=== PATIENT | male | born 1995 | race Caucasian/White ===

== ENCOUNTER 2017-07-27 12:41 | Emergency (ER) | payer OTHER ==
[~2017-07-27] VITALS: Ht 182.9 cm; Wt 81.6 kg
[2017-07-27 13:08] VITALS: BP 144/78
--- NOTE | 2017-07-27 13:19 | ED General ---
General Chief Complaint: Dental Problems/Pain Stated Complaint: BACK PAIN Source of Information: Patient Exam Limitations: No Limitations History of Present Illness Time Seen by Provider: 13:16 Initial Comments The patient is a 21-year-old white male who presents with low back pain. He reports that it has been present for 3 days and increasing in intensity. The original back pain goes back to about age 17 after a wrestling injury. He states that there were 2 fractures. They were said to have healed but he has never been free of pain since then. He recently had to quit his job because of back pain. He has been using heat and 200 mg of ibuprofen with this recurrence. There is no pain Timing/Duration: 3-4 Days Allergies and Home Medications Allergies Coded Allergies: No Known Drug Allergies (Unverified , 01/12/12) Home Medications No Active Prescriptions or Reported Meds Constitutional: see HPI EENTM: no symptoms reported Respiratory: no symptoms reported Cardiovascular: no symptoms reported Gastrointestinal: no symptoms reported Genitourinary: no symptoms reported Musculoskeletal: see HPI, back pain Skin: no symptoms reported Psychiatric/Neurological: No Symptoms Reported Hematologic/Lymphatic: No Symptoms Reported Immunological/Allergic: no symptoms reported Past Rtjwefz-Kmovkl-Mjeghx Hx Patient Social History Recent Foreign Travel: No Contact w/Someone Who Travel: No Physical Exam Vital Signs Vital Sign - Last 12Hours 07/27/17 13:08 Temp 98.0 Pulse 75 Resp 18 B/P (MAP) 144/78 (100) Pulse Ox 100 O2 Delivery Room Air Capillary Refill : General Appearance: No Apparent Distress, WD/WN HEENT: Normal ENT Inspection Neck: Normal Inspection Respiratory: Chest Non Tender, Lungs Clear, Normal Breath Sounds, No Accessory Muscle Use, No Respiratory Distress Cardiovascular: Regular Rate, Rhythm, No Edema, No Gallop, No JVD, No Murmur, Normal Peripheral Pulses Gastrointestinal: Normal Bowel Sounds Back: CVA Tenderness (L), CVA Tenderness (R), Vertebral Tenderness Extremity: Normal Capillary Refill, Normal Inspection, Normal Range of Motion, Non Tender, No Calf Tenderness, No Pedal Edema Neurologic/Psychiatric: Alert, Oriented x3, No Motor/Sensory Deficits, Normal Mood/Affect Progress/Results/Core Measures Suspected Sepsis SIRS Temperature: Pulse: Respiratory Rate: Laboratory Tests 07/27/17 13:28: White Blood Count 5.1 Blood Pressure / Mean: Laboratory Tests 07/27/17 13:28: Platelet Count 200 Results/Orders Lab Results Laboratory Tests Test 07/27/17 13:28 Range/Units White Blood Count 5.1 4.3-11.0 10^3/uL Red Blood Count 5.07 4.35-5.85 10^6/uL Hemoglobin 15.9 13.3-17.7 G/DL Hematocrit 44 40-54 % Mean Corpuscular Volume 86 80-99 FL Mean Corpuscular Hemoglobin 31 25-34 PG Mean Corpuscular Hemoglobin Concent 36 32-36 G/DL Red Cell Distribution Width 12.0 10.0-14.5 % Platelet Count 200 130-400 10^3/uL Mean Platelet Volume 9.5 7.4-10.4 FL Neutrophils (%) (Auto) 56 42-75 % Lymphocytes (%) (Auto) 29 12-44 % Monocytes (%) (Auto) 8 0-12 % Eosinophils (%) (Auto) 6 0-10 % Basophils (%) (Auto) 0 0-10 % Neutrophils # (Auto) 2.9 1.8-7.8 X 10^3 Lymphocytes # (Auto) 1.5 1.0-4.0 X 10^3 Monocytes # (Auto) 0.4 0.0-1.0 X 10^3 Eosinophils # (Auto) 0.3 0.0-0.3 10^3/uL Basophils # (Auto) 0.0 0.0-0.1 10^3/uL My Orders Orders - MEL BILLY MD Cbc With Automated Diff (07/27/17 13:15) Lumbar Spine - 2-3 Views (07/27/17 13:15) Vital Signs/I&O Vital Sign - Last 12Hours 07/27/17 13:08 Temp 98.0 Pulse 75 Resp 18 B/P (MAP) 144/78 (100) Pulse Ox 100 O2 Delivery Room Air Capillary Refill : Departure Communication (Admissions) Progress Notes X-rays reveal no evidence of bony abnormality Impression Impression: Primary Impression: back pain Disposition: 01 HOME, SELF-CARE Condition: Stable/Unchanged Departure-Patient Inst. Decision time for Depature: 14:10 Referrals: CYRUS ALVAREZ MD (PCP/Family) Primary Care Physician Patient Instructions: MANAGING YOUR CHRONIC PAIN Add. Discharge Instructions: All discharge instructions reviewed with patient and/or family. Voiced understanding. Use heat to area Tramadol and Flexeril as ordered See your provider for consideration of further workup Scripts [Flexeril] No Conflict Check 10 ttwice a day, #10 Prov: MEL BILLY MD 07/27/17 Tramadol HCl (Tramadol HCl) 50 Mg Tablet 50 MG PO 4 times a day, #20 TAB Prov: MEL BILLY MD 07/27/17 MEL BILLY MD Jul 27, 2017 13:19
[2017-07-27 13:33] LABS: BASOPHILS % (AUTO) 0 % (0-10); EOSINOPHILS # (AUTO) 0.3 10^3/uL (0.0-0.3); EOSINOPHILS % (AUTO) 6 % (0-10); HEMATOCRIT 44 % (40-54); HEMOGLOBIN 15.9 G/DL (13.3-17.7); LYMPHOCYTES # (AUTO) 1.5 X 10^3 (1.0-4.0); LYMPHOCYTES % (AUTO) 29 % (12-44); MEAN CORPUSCULAR HEMOGLOBIN 31 PG (25-34); MEAN CORPUSCULAR HGB CONC 36 G/DL (32-36); MEAN CORPUSCULAR VOLUME 86 FL (80-99); MEAN PLATELET VOLUME 9.5 FL (7.4-10.4); MONOCYTES # (AUTO) 0.4 X 10^3 (0.0-1.0); MONOCYTES % (AUTO) 8 % (0-12); NEUTROPHILS # (AUTO) 2.9 X 10^3 (1.8-7.8); NEUTROPHILS % (AUTO) 56 % (42-75); PLATELET COUNT 200 10^3/uL (130-400); RED BLOOD COUNT 5.07 10^6/uL (4.35-5.85); WHITE BLOOD COUNT 5.1 10^3/uL (4.3-11.0)
--- NOTE | 2017-07-27 13:58 | Diagnostic Imaging Report ---
EXAMINATION: Lumbar spine radiographs, 3 views. COMPARISON: None. INDICATION: 21-year-old male, chronic low back pain. FINDINGS: There are 5 lumbar type vertebral bodies. There is no identified acute fracture. The alignment of lumbar spine is unremarkable. Disc heights are well-preserved. The sacroiliac joints are unremarkable in appearance. IMPRESSION: Unremarkable radiographs of the lumbar spine. Dictated by: Dictated on workstation # [id number]
[2017-07-27] MEDS ORDERED: Flexeril (14:12)
[2017-07-27] MEDS ORDERED: TRAM50TA2 PO (14:12)
== END 2017-07-27 14:34 | disposition home or self-care (01) ==
LOC: EDUNIT# 12:41 → ER 12:42
DX: M54.5 Low back pain (principal)
CPT/HCPCS: 36415; 72100; 85025; 99283

== ENCOUNTER 2017-08-20 05:33 | Outpatient (CLI) | payer OTHER ==
[~2017-08-20] VITALS: Ht 185.4 cm; Wt 81.6 kg
[~2017-08-20 05:33] MED LIST: Flexeril; TRAM50TA2 PO
[2017-08-20] MEDS ORDERED: ONDA4TAB11 PO (13:22)
[2017-08-20] MEDS ORDERED: HYDR-3820 PO (13:22)
== END 2017-08-20 13:28 ==
LOC: PREOP 05:33
PROVIDERS: ATTEND Urology
DX: Z01.818 Encounter for other preprocedural examination (principal); N13.5 Crossing vessel and stricture of ureter without hydronephrosis

== ENCOUNTER 2017-08-21 08:51 | Day surgery (SDC) | payer OTHER ==
[~2017-08-21] VITALS: Ht 185.4 cm; Wt 81.6 kg
[~2017-08-21 08:51] MED LIST changes: +HYDR-3820 PO; +ONDA4TAB11 PO
[2017-08-21] MEDS ORDERED: cefTRIAXone INJECTION 1,000 MG in D5W 50 ML IVPB SOLUTION 50 ML IV ONE (09:15)
[2017-08-21 09:19] VITALS: BP 141/85
[2017-08-21] MEDS ORDERED: fentaNYL INJECTION 100 MCG/2 ML AMP ONE (10:15)
[2017-08-21] MEDS ORDERED: MIDAZOLAM 2 MG/2 ML (VERSED) VIAL ONE (10:15)
[2017-08-21] MEDS ORDERED: ONDANSETRON 4 MG/2 ML (SDV) Z0FRAN ONE (10:17)
[2017-08-21] MEDS ORDERED: proPOfol 200 MG/20 ML (DIPRIVAN) VIAL IV ONE (10:17)
[2017-08-21] MEDS ORDERED: SEVOFLURANE (ULTANE) 15 ML INHAL SOLN ONE ×2 (10:17→11:10)
[2017-08-21] MEDS ORDERED: DEXAMETHASONE 10 MG/ML (DECADRON) 1 ML VIAL ONE (10:17)
[2017-08-21] MEDS ORDERED: LIDOCAINE PF 2% 5 ML (XYLOCAINE) VIAL ONE (10:17)
--- NOTE | 2017-08-21 10:21 | Progress Note-Pre Operative ---
Pre-Operative Progress Note H&P Reviewed The H&P was reviewed, patient examined and no changes noted. Date Seen by Provider: Aug 21, 2017 Time Seen by Provider: 10:21 Date H&P Reviewed: Aug 21, 2017 Time H&P Reviewed: 10: Pre-Operative Diagnosis: RT UPJ OBSTRUCTION NAHUM DOMINGUEZ MD Aug 21, 2017 10:21 am
--- NOTE | 2017-08-21 10:22 | Progress Note-Post Operative ---
Post-Operative Progess Note Surgeon (s)/Stripper Apprentice (s) Surgeon NAHUM DOMINGUEZ MD Stripper Apprentice: N/A Pre-Operative Diagnosis RT UPJ OBSTRUCTION Post-Operative Diagnosis SAME Procedure & Operative Findings Date of Procedure 08/21/17 Procedure Performed/Findings CYSTOSCOPY, RT RETROGRADE UROGRAM AND INSERTION OF JJ STENT Anesthesia Type GENERAL Estimated Blood Loss Estimated blood loss (mL): N/A Specimens/Packing Specimens Removed N/A Packing: N/A NAHUM DOMINGUEZ MD Aug 21, 2017 10:22 am
--- NOTE | 2017-08-21 10:23 | Discharge Inst-Urology ---
Discharge Inst-Urology Discharge Medications New, Converted, or Re-newed RX: RX on Chart Patient Instructions/Follow Up Plan Please make appointment to been seen in office next week week. Increase oral fluids for 48 hours and then as needed. Diet and Activity as tolerated. If questions or concerns contact your physician Or seek help at emergency department. NAHUM DOMINGUEZ MD Aug 21, 2017 10:23 am
[2017-08-21] MEDS ORDERED: WATER (STERILE) FOR INJECTION 20 ML ONE (10:33)
[2017-08-21] MEDS ORDERED: MEPERIDINE (DEMEROL) INJ 50 MG/ML ONE (11:10)
[2017-08-21] MEDS ORDERED: morphine INJ 10 MG/ML 1ML (SYR OR VIAL) ONE (11:22)
[2017-08-21] MEDS: morphine INJ 10 MG/ML 1ML (SYR OR VIAL) IVP PRN ×2 (11:24→11:30)
[2017-08-21] MEDS ORDERED: PROMETHAZINE INJ 25 MG/ML (PHENERGAN) AMP IVP PRN (11:30)
[2017-08-21] MEDS ORDERED: ONDANSETRON 4 MG/2 ML (SDV) Z0FRAN IVP PRN (11:30)
[2017-08-21 11:45] VITALS: BP 127/90
--- NOTE | 2017-08-21 12:29 | Diagnostic Imaging Report ---
INDICATION: Cystoscopy. TECHNIQUE: Fluoroscopy was provided in the OR for cystoscopy and retrograde pyelogram. One minute and 10 seconds of fluoroscopy was utilized. Images demonstrate contrast within a dilated right renal pelvis. There appears to be a right sided stent in place. IMPRESSION: Fluoroscopy for cystoscopy and retrograde pyelography. Dictated by: Dictated on workstation # [id number]
--- NOTE | 2017-08-21 12:44 | OPERATIVE REPORT ---
DATE OF SERVICE: 08/21/2017 PREOPERATIVE DIAGNOSIS: Right ureteropelvic junction obstruction. POSTOPERATIVE DIAGNOSIS: Right ureteropelvic junction obstruction. OPERATION PERFORMED: Cystoscopy, right retrograde urogram and insertion of right double-J stent. SURGEON: Félix Dominguez MD ANESTHESIA: General. COMPLICATIONS: None. DESCRIPTION OF PROCEDURE: Under satisfactory general anesthesia, the patient in lithotomy position, genitalia were prepped and draped in usual sterile fashion. Cystoscope was introduced under vision. The anterior urethra was normal. The prostate was small nonobstructing. Bladder neck open. Bladder was examined and was completely normal except for a slightly sluggish efflux on the right side. Using the foroblique lens, I passed a ureteral catheter, injected contrast all the way up to fill the kidney and confirm the UPJ obstruction with the common appearance of the most of them. There was no high insertion of the ureter. I passed a 6-Maori double-J stent and bypassed the obstruction easily. I removed the guidewire and the stent was seen draining nicely proximally fluoroscopically and distal endoscopically. Bladder was evacuated and the cystoscope was removed. The patient tolerated the procedure and anesthesia well, was sent to recovery room in stable condition. We will see him next week at the office and we referred him to [facility] for either laparoscopic or endoscopic procedure for the UPJ obstruction. Job ID: [id number] DocumentID: [id number] Dictated Date: 08/21/2017 11:02:35 Transfer Car Operator Date: 08/21/2017 12:43:16 Dictated By: FÉLIX DOMINGUEZ MD
[2017-08-21 12:49] VITALS: BP 127/90
== END 2017-08-21 12:49 | disposition home or self-care (01) ==
LOC: SDC 08:51
PROVIDERS: ATTEND Urology
DX: N13.5 Crossing vessel and stricture of ureter without hydronephrosis (principal); F17.210 Nicotine dependence, cigarettes, uncomplicated
CPT/HCPCS: 87081

== ENCOUNTER → 2017-09-18 | Outpatient (CLI) | payer OTHER ==
[~2017-09-18] MED LIST changes: +CATHETER FLUSH 10 ML SYR IV PRN; +FUROSEMIDE 40 MG/4 ML INJ (LASIX) IVP ONE
--- NOTE | 2017-09-18 16:36 | Diagnostic Imaging Report ---
INDICATION: UPJ obstruction. TECHNIQUE: Patient was administered 5.3 mCi technetium 99m MAG3 and imaging over the abdomen was performed. In addition, 40 mg of Lasix was administered intravenously at approximately 15 minutes into the study. FINDINGS: The dynamic flow images demonstrate symmetric uptake of activity by both kidneys. There appears to be fairly symmetric uptake of tubular activity as well as excretion of activity into bilateral renal collecting systems. There is accumulation of activity into the dilated right renal pelvis, correlating with patient's known right UPJ obstruction. There is a normal downgoing renogram curve for the left kidney. There is a slightly flatter right renogram curve owing to activity accumulation in the renal pelvis, however there does appear to be normal excretion of activity into the right ureter and urinary bladder. Overall, differential renal function is 54% for the left kidney and 46% for the right. IMPRESSION: Renal scan does show symmetric perfusion bilaterally. There is slightly delayed excretion of activity from the right kidney with moderate accumulation into the right renal pelvis, consistent with known UPJ obstruction. However, there is excretion of activity from both kidneys into bilateral ureters and urinary bladder. No obstruction is identified. Dictated by: Dictated on workstation # [id number]
== END ==
LOC: CARD 07:31
PROVIDERS: ATTEND Urology
DX: N13.5 Crossing vessel and stricture of ureter without hydronephrosis (principal)
CPT/HCPCS: 78708

== ENCOUNTER → 2018-02-11 | Outpatient (CLI) | payer OTHER ==
[~2018-02-11] MED LIST changes: -FUROSEMIDE 40 MG/4 ML INJ (LASIX) IVP ONE; +FUROSEMIDE 40 MG/4 ML INJ (LASIX) ONE
--- NOTE | 2018-02-11 15:23 | Diagnostic Imaging Report ---
INDICATION: UPJ obstruction. TECHNIQUE: Patient was administered 5.4 mCi technetium 99m MAG3 and imaging over the abdomen was performed. Approximately 15 minutes into the exam, patient was administered 40 mg of Lasix and additional imaging was performed. COMPARISON: Correlation is made with prior renal scan from 09/18/2017. FINDINGS: Perfusion portion of the exam demonstrates symmetric perfusion of both kidneys. Overall tubular uptake appears to be symmetric. There appears to be prompt excretion of activity into bilateral renal collecting systems. Similar to prior study, there is some accumulation into a moderately dilated right renal pelvis with some left-sided hydronephrosis present. However, renogram curves are downgoing. There is no evidence of obstruction. Overall differential renal function is 52% for the left and 48% for the right. IMPRESSION: Stable MAG3 renal study when compared with examination from 09/18/2017. There is dilatation of the right renal pelvis consistent with known UPJ obstruction but no obstructed system is seen. There is normal excretion bilaterally. Dictated by: Dictated on workstation # [id number]
== END ==
LOC: CARD 13:00
PROVIDERS: ATTEND Urology
DX: N13.5 Crossing vessel and stricture of ureter without hydronephrosis (principal)
CPT/HCPCS: 78708

== ENCOUNTER → 2018-11-25 | Outpatient (CLI) | payer OTHER ==
[~2018-11-25] MED LIST changes: +FUROSEMIDE 40 MG/4 ML INJ (LASIX) IVP ONE
[2018-11-25 14:42] LABS: BUN/CREATININE RATIO 17; CALCIUM 10.2 MG/DL (8.5-10.1); CARBON DIOXIDE 26 MMOL/L (21-32); CHLORIDE 103 MMOL/L (98-107); CREATININE SERUM 1.05 MG/DL (0.60-1.30); GFR ESTIMATED > 60; GLUCOSE 87 MG/DL (70-105); PHOSPHORUS 3.6 MG/DL (2.3-4.7); POTASSIUM 4.6 MMOL/L (3.6-5.0); SODIUM 139 MMOL/L (135-145)
--- NOTE | 2018-11-25 17:02 | Diagnostic Imaging Report ---
INDICATION: Right ureteropelvic junction stenosis. TECHNIQUE: After intravenous administration of 5.5 mCi of technetium 99m MAG-3, scintigraphic imaging was performed over the kidneys and bladder. COMPARISON: 02/11/2018. FINDINGS: Similar to the previous study, there is normal uptake by both kidneys without significant delay. There is also excretion of activity from both kidneys; however, there is prompt washout of activity from the left renal collecting system with a delay in washout of the right renal collecting system. Intravenous Lasix was administered after 15 minutes which increases washout of the right kidney. IMPRESSION: Similar to the previous study, there is a delay in washout of activity from the right kidney, compatible with probable incompletely obstructing stenosis at the right ureteropelvic junction. No perfusion abnormality or complete obstruction is seen. Dictated by: Dictated on workstation # [id number]
== END ==
LOC: CARD 12:29
PROVIDERS: ATTEND Physician Assistant
DX: N13.5 Crossing vessel and stricture of ureter without hydronephrosis (principal)
CPT/HCPCS: 36415; 78708; 80069